=== PATIENT | male | born 1940 | race Caucasian/White ===

== ENCOUNTER 2016-12-25 12:15 | Emergency (ER) | payer MEDICARE ==
[2016-12-25 11:08] LABS: BASOPHILS 0.1 %; BASOPHILS ABSOLUTE 0.01 10/3/uL (0.0-0.16); EOSINOPHILS 0.7 %; EOSINOPHILS ABSOLUTE 0.05 10/3/uL (0.0-0.53); HEMATOCRIT 43.3 % (40.0-51.0); HEMOGLOBIN 14.5 g/dL (13.6-17.8); IMMATURE GRANULOCYTES 0.1 %; IMMATURE GRANULOCYTES ABSOLUTE 0.01 10/3/uL (0.0-0.11); LYMPHOCYTES 21.5 %; MEAN CORPUS HGB CONC 33.5 g/dL (32.0-36.0); MEAN CORPUSCULAR HEMOGLOB 31.7 pg (26.0-34.0); MEAN CORPUSCULAR VOLUME 94.7 fL (80-100); MEAN PLATELET VOLUME 10.1 fL (9.2-13.0); MONOCYTES 5.7 %; NEUTROPHILS 71.9 %; NEUTROPHILS ABSOLUTE 5.02 10/3/uL (2.02-8.40); PLATELET COUNT 169 10/3/uL (150-400); RBC DISTRIBUTION WIDTH 14.3 % (12.0-16.0); RED CELL COUNT 4.57 10/6/uL (4.7-6.1)
[2016-12-25 11:09] LABS: MANUAL DIFF NO %
[2016-12-25 11:19] LABS: BUN (BLOOD UREA NITROGEN) 18 MG/DL (6-23); CALCIUM, SERUM 8.8 MG/DL (8.5-10.4); CHLORIDE, SERUM 107 MMOL/L (96-112); CO2 (CARBON DIOXIDE) 30 MMOL/L (24-34); CREATININE 0.77 MG/DL (0.70-1.30); GFR AFRICAN AMERICAN 103 ML/MIN (>=60); GFR NON AFRICAN AMERICAN 89 ML/MIN (>=60); POTASSIUM, SERUM 4.6 MMOL/L (3.5-5.3); SODIUM, SERUM 144 MMOL/L (135-148)
[2016-12-25 11:20] LABS: GLUCOSE, SERUM 106 MG/DL (60-99)
[~2016-12-25 12:15] MED LIST: ACET500CAP PO; ADVAIR100 INH; ASA5GR PO; ASAB PO; ATV1 PO; BYSTOLIC5 MG PO; COMP10B PO; DIGITEK0.125 MG PO; DIOV160 PO; FLONASE NAS; HCTZ25B PO; HYDROCHLOROT25 MG PO; IMMODLIQU PO; JUICE FESTIVE PO; K-TABS10 MEQ PO; KLONO1 PO; KLONO2 PO; LEVAQUIN750 MG PO; LIPITOR40 PO; LOFIB160 PO; LOP50 PO; LORT7 PO; MAXIMUM D3 PO; MEVACOR PO; MEVACOR40 MG PO; MIRALAXPKT PO; MULTAQ400 MG PO; MULTIVIT/MIN PO; NAP500 PO; NORCO1 TA1 PO; OXYIR5 MG PO; PCET PO; PHENADOZ25 MG RE; PR25 PO; PRADAXA150 MG PO; PRILO PO; PRILOSEC40 MG PO; PRIN10 PO; PRIN20 PO; PROBIOTIC PO; THERAPEUTIC PO; TOPXL50 PO; ULTRAM50 PO; ZESTRIL20 MG PO; ZOFRAN4 PO; ZOFRAN8 PO; ZOFRANODT8 PO; ZOL50 PO; ZYRTEC ALLGY10 MG PO; [UNRECOGNIZED DRUG - OTHER] PO
[2016-12-25 12:16] LABS: ASCORBIC ACID (UR NOT ORDER) NEG (NEG); BILIRUBIN, URINE NEGATIVE (NEG); ER URINALYSIS TAT 0 Hrs 05 Mins; KETONE, URINE NEGATIVE (NEG); LEUKOCYTE ESTERASE(NOT OR NEG (NEG); NITRITE (URINE) NEG (NEG); WBC (NOT ORDERED) (RFLEX) < 1 (0-5)
== END 2016-12-25 12:34 | disposition home or self-care (01) ==
LOC: ER 12:15
PROVIDERS: Physician Assistant
DX: M54.9 Dorsalgia, unspecified (principal); Z87.442 Personal history of urinary calculi; Z88.6 Allergy status to analgesic agent; Z88.2 Allergy status to sulfonamides; Z79.82 Long term (current) use of aspirin; Z79.899 Other long term (current) drug therapy; Z85.46 Personal history of malignant neoplasm of prostate
CPT/HCPCS: 74176; 80048; 81001; 85025; 96374; 96375; 99284; J1170; J2405